=== PATIENT | female | born 1985 | race Caucasian/White ===

== ENCOUNTER 2019-07-17 03:23 | Inpatient (IN) | payer BC ==
[~2019-07-17] VITALS: Ht 154.9 cm; Wt 95.5 kg
[2019-07-17] VITALS (68 sets, daily range): BP systolic 105–145; BP diastolic 57–89; PULSE 71–148; TEMP 97.7–99
--- NOTE | 2019-07-17 03:40 | NUR ---
To unit via wheelchair, accompanied by significant other, for assessment. Pt reports SROM @ 0751. Plan of care, monitors reviewed.
[2019-07-17 05:31] LABS: BASO % 0.2 % (0.0-2.0); EOS # 0.2 (0.0-0.7); EOS % 1.5 % (0-4.0); GRAN # 11.2 (1.4-6.5); GRAN % 72.8 % (42.2-75.2); HEMOGLOBIN 11.9 g/dl (12.5-16.0); LYMPH # 2.6 (1.2-3.4); LYMPH % 16.5 % (20.0-51.0); MEAN CELL VOLUME 91 fl (80.0-100.0); MEAN CORPUSCULAR HEMOGLOBIN 31 pg (27.0-31.0); MEAN CORPUSCULAR HGB CONC 34 g/dl (33.0-37.0); MEAN PLATELET VOLUME 10.1 fl (7.4-10.4); MONO # 1.2 (0.1-0.6); MONO % 7.7 % (1.7-9.3); PLATELET COUNT 270 K/mm3 (130-400); REDCELL DISTRIBUTION WIDTH-CV 13.9 % (11.5-14.5)
[2019-07-17 05:33] LABS: HEMATOCRIT 35.5 % (37.0-47.0)
--- NOTE | 2019-07-17 11:45 | NUR ---
PATIENT WL, WR, LL, RL, THEN SEMIFOWLERS
--- NOTE | 2019-07-17 21:00 | NUR ---
BEDSIDE US PER DR DUONG - BABY FOUND TO BE TRANSVERSE POSITION. WILL CONTINUE TO REPOSITION AND USE PEANUT BALL WITH PITOCIN. Melissa REDMOND GIVEN UPDATE
--- NOTE | 2019-07-17 23:00 | NUR ---
NASEEM SCRUB POSITIONED FOR PUSHING. DR DUONG HERE
[2019-07-18] VITALS (13 sets, daily range): BP systolic 114–135; BP diastolic 54–73; PULSE 75–141; TEMP 98–98.8
--- NOTE | 2019-07-18 | NUR ---
MALE- TO MOTHERS ABDOMEN SPONTANEOUS CRY.CORD GASES DRAWN BY DR DUONG. PARENTS ATTENTIVE
[2019-07-18 00:49] LABS: UMBILICAL ARTERY ABG PCO2 44.4 mmHg (30-65); UMBILICAL ARTERY ABG PO2 25.1 mmHg (50-75)
[2019-07-18 00:50] LABS: UMBILICAL ARTERY ABG pH 7.26 (7.28-7.45)
[2019-07-18 07:29] LABS: HEMATOCRIT 32.6 % (37.0-47.0)
[2019-07-19 07:39] VITALS: BP 105/72; PULSE 74; TEMP 97.8
--- NOTE | 2019-07-19 11:15 | NUR ---
Initial visit attempt; Physician present, Historiography Teacher left card of congratulations and information regarding the availability of Spiritual Care at [facility].
[2019-07-19 15:15] VITALS: BP 123/67; PULSE 74; TEMP 98.5
[2019-07-19 20:00] VITALS: BP 111/64; PULSE 75; TEMP 98
[2019-07-20 08:00] VITALS: BP 120/83; PULSE 71; TEMP 97.9
[2019-07-20] MEDS ORDERED: PERCOCET 325 MG1 TA2 PO (09:46)
[2019-07-20] MEDS ORDERED: IBU600 MG PO (09:46)
--- NOTE | 2019-07-20 10:13 | NUR ---
Initial visit; Patient indisposed, Nurse present. Psychiatric Orderly left card of congratulations for the of patient's son and information regarding the availability of Spiritual Care at our hospital.
[2019-07-20 16:45] VITALS: BP 127/70; PULSE 75; TEMP 97.7
== END 2019-07-20 18:30 | disposition home or self-care (01) | DRG 807 ==
LOC: LDRO 03:23 → LDR 04:26 → OB 07-18 03:06
PROVIDERS: Obstetrics & Gynecology; ADMIT Student in an Organized Health Care Education/Training Program
PROC: 10E0XZZ Delivery of Products of Conception, External Approach (ICD-10-PCS; principal; 2019-07-17)
DX: O99.214 Obesity complicating childbirth (principal); Z37.0 Single live birth; E66.9 Obesity, unspecified; O76 Abnormality in fetal heart rate and rhythm complicating labor and delivery; Z23 Encounter for immunization; O62.4 Hypertonic, incoordinate, and prolonged uterine contractions; Z3A.37 37 weeks gestation of pregnancy
CPT/HCPCS: J1200; J2590; J2795; J7120